=== PATIENT | female | born 1970 | race Caucasian/White ===

== ENCOUNTER → 2018-02-01 09:09 | Outpatient (CLI) | payer BC, SELFPAY ==
--- NOTE | 2018-02-01 09:16 | FL_ITS ---
FL upper GI w air HISTORY: ITS.REASON: GERD W/ESOPHAGITIS ORDERING PHYSICIAN: Radha Stephens PATIENT AGE: 47 years Comparison: None FINDINGS: The esophagus, stomach, and duodenum have an unremarkable appearance. There is a small sliding hiatal hernia. No ulcer or mass evident. No mucosal abnormalities apparent. There is normal peristalsis. The duodenal C-loop is nondisplaced. FLUOROSCOPY TIME : 2 minutes and 1 second. IMPRESSION: Small sliding hiatal hernia otherwise negative upper GI
== END ==
PROVIDERS: PCP Internal Medicine Adolescent Medicine; Visit Provider Nurse Practitioner Family
DX: K21.0 Gastro-esophageal reflux disease with esophagitis (principal)
CPT/HCPCS: 74247